=== PATIENT | male | born 1945 | race Caucasian/White ===

== ENCOUNTER → 2016-07-30 | Outpatient (CLI) | payer MEDICARE, BC ==
[~2016-07-30] MED LIST: ADVIL200 MG PO; ASPIRIN LO-DOSE81 MG PO; COLACE100 MG PO; DILAUDID 2MG(HYD2 MG PO; LIPITOR40 MG PO; MINOCYCLINE HC100 MG PO; MIRALAX17 GM PO; ROCEPHIN2 G1 IV; TOPROL XL200 MG PO; TRIAMCINOLONE 080 GM TOP; TRIAMTERENE-HC1 EACH PO; TYLENOL EXTRA500 MG PO; VALIUM5 MG PO; VANCO-0.9%1.25 GM/25 IV; XARELTO10 MG PO; ZYRTEC10 MG PO
[2016-07-30 13:35] LABS: ALBUMIN 3.1 gm/dL (3.5-5.0); ALK PHOS 94 IU/L (33-138); ALT 15 IU/L (12-78); ANION GAP 14.4 (10.0-19.0); AST 17 IU/L (10-40); BLOOD UREA NITROGEN 18 mg/dL (6-24); CALCIUM 8.7 mg/dL (8.5-10.5); CHLORIDE 102 mMol/L (96-110); CO2 27 mMol/L (22-32); CREATININE 0.8 mg/dL (0.6-1.3); POTASSIUM 4.4 mMol/L (3.7-5.1); SODIUM 139 mMol/L (135-145); TOTAL BILIRUBIN 0.4 mg/dL (0.0-1.5); TOTAL PROTEIN 6.8 g/dL (6.0-8.4)
[2016-07-30 13:45] LABS: ESTIMATED GFR (MDRD EQUATION) > 60
== END | disposition disaster alternative care site (69) ==
LOC: GRAD 07-27 → GLAB 07-27 → GRAD 12:45 → GLAB 13:00 → GRAD 13:00
PROVIDERS: Orthopaedic Surgery
DX: M79.89 Other specified soft tissue disorders (principal); M89.58 Osteolysis, other site; M85.652 Other cyst of bone, left thigh; Z96.642 Presence of left artificial hip joint
CPT/HCPCS: Q9967

== ENCOUNTER 2016-11-25 09:48 | Inpatient (IN) | payer MEDICARE, BC ==
[~2016-11-25] VITALS: Ht 188 cm; Wt 85.2 kg
--- NOTE | ~2016-11-25 | OR ---
PATIENT'S NAME: FELIPE MONTGOMERY [facility] AGE: 71 Y [address] ROOM: [address] [address] LOCATION: [facility] ADMIT DATE: 11/26/2016 OR/Procedure Report DISCHARGE DATE: FAMILY PHYSICIAN: Devin Jones MD ATTENDING PHYSICIAN: JOSEPHINE ART SURGEON: Josephine Art MD MEDICAL DOCTOR MD: DATE OF PROCEDURE: 11/26/2016 ADDENDUM: It should be noted that stability was assessed with a trial range of motion prior to wound closure. After the final reduction, the hip could not be anteriorly subluxated with firm external rotation with full extension and 0 degrees of abduction. In neutral rotation and 0 degrees of abduction, the hip could be hyperflexed to 120 degrees without instability. At 90 degrees of flexion and 0 degrees of abduction, the hip could be internally rotated to 60 degrees without posterior subluxation. This was deemed to be more than acceptable stability. MD SUREKHA KLEIN/modl /[id number] d: 11/26/16 2213 t: 12/10/16 0752, OPERATIVE SUMMARY
--- NOTE | ~2016-11-25 | DS ---
PATIENT'S NAME: FELIPE MONTGOMERY [facility] AGE: 71 Y [address] ROOM: [place] [address] LOCATION: [facility] ADMIT DATE: 11/26/2016 Discharge Summary DISCHARGE DATE: 11/30/2016 FAMILY PHYSICIAN: Devin Jones MD ATTENDING PHYSICIAN: Josephine Art PRIMARY DIAGNOSIS: Failed left total hip arthroplasty. SECONDARY DIAGNOSES: 1. Hypertension. 2. Macular degeneration. 3. Venous insufficiency. PROCEDURE PERFORMED: Left total hip revision. HISTORY: The patient is a 71-year-old male, who presents with failed left total hip arthroplasty and associated severely compromised activities of daily living. The patient has decided to proceed with left total hip revision after having been thoroughly counseled regarding the risks, benefits, limitations and alternatives. Please refer to the outpatient clinic notes and admission history and physical for this patient. HOSPITAL COURSE: The patient underwent a left total hip revision on 11/26/2016 without complications. Spinal anesthesia plus subcutaneous and periarticular local anesthesia was utilized. The patient received 24 hours of perioperative prophylactic antibiotics and remained hemodynamically stable, neurovascularly intact throughout the entire hospital course. The postoperative prophylactic deep venous thrombosis prophylaxis consisted of Xarelto, early mobilization and pneumatic compression devices. Daily physical therapy for gait training, transfer training, and reinforcement of hip dislocation precautions were received. The patient progressed well in physical therapy. On the date of discharge, 11/30/2016, the incision at the hip was healing well and showed no signs of infection. DISPOSITION: Home. DISCHARGE ACTIVITY: The patient is to bear weight as tolerated with strict hip dislocation precautions as instructed. There are to be no dressing changes. Dr. Art is to be notified immediately if there is any increased pain, fevers, chills, erythema or drainage. DISCHARGE MEDICATIONS: 1. Xarelto 10 mg 1 tab p.o. daily for 12 days for postoperative DVT prophylaxis. 2. Hydromorphone 2 mg 1 to 2 tabs p.o. every 4 hours p.r.n. for pain. PATIENT'S NAME: FELIPE MONTGOMERY [facility] AGE: 71 Y [address] ROOM: [place] [address] LOCATION: [facility] ADMIT DATE: 11/26/2016 Discharge Summary DISCHARGE DATE: 11/30/2016 FAMILY PHYSICIAN: Devin Jones MD ATTENDING PHYSICIAN: Josephine Art 3. Diazepam 1/2 to 1 tab p.o. every 6 hours p.r.n. for muscle spasms. 4. Ceftriaxone 2 g vial IV every day until seen by infectious disease followup. 5. Vancomycin 1 g vial IV every 12 hours until seen by infectious disease followup. 6. He is then instructed to continue all his other preadmission medications as instructed by his internal medicine doctor. FOLLOWUP: Followup appointment is to be with Dr. Art's office on 12/03/2016. ALEJANDRO NEGRETE PA-C FOR JOSEPHINE ART MD SMW/modl /[id number] d: 12/06/16 2311 t: 12/09/16 0923, DISCHARGE SUMMARY
--- NOTE | ~2016-11-25 | OR ---
[facility] 71 Y [address] ROOM: [place] [address] LOCATION: [facility] ADMIT DATE: 11/26/2016 OR/Procedure Report DISCHARGE DATE: FAMILY PHYSICIAN: Devin Jones MD ATTENDING PHYSICIAN: JOSEPHINE ART SURGEON: Josephine Art MD PATIENT ACCESS MANAGER: Ubaldo Mercado PA-C, and Wong Calzada TIRE BUFFER/TRAVELING PHLEBOTOMIST. DATE OF PROCEDURE: 11/26/2016 PREOPERATIVE DIAGNOSES: 1. 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 2. History of chronic left hip periprosthetic infection (the patient has been on oral suppressive antibiotics for over two decades). 3. Left thigh mass (? pseudotumor versus abscess). POSTOPERATIVE DIAGNOSES: 1. 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 2. History of chronic left hip periprosthetic infection (the patient has been on oral suppressive antibiotics for over two decades). 3. Left thigh mass (? pseudotumor versus abscess). PROCEDURES PERFORMED: 1. Revision left total hip arthroplasty (exchange of left femoral head and left acetabular polyethylene liner). 2. Extensive left hip synovectomy. 3. Decompression and debridement of left thigh fluid-filled mass (pseudocyst versus abscess). 4. Placement of antibiotic-impregnated calcium sulfate beads. ANESTHESIA: Spinal anesthesia plus subcutaneous and periarticular local anesthesia (ropivacaine with epinephrine and Toradol). DRAINS: None. SPECIMENS: 1. Synovial fluid for culture. 2. Synovial tissue for culture and histology. 3. Thigh mass fluid for culture and histology. 4. Thigh mass tissue for histology. EXPLANTS: 1. Intermedics APR II acetabular polyethylene liner (lipped) with 28-mm [facility]GE: 71 Y [address] ROOM: [place] [address] LOCATION: [facility] ADMIT DATE: 11/26/2016 OR/Procedure Report DISCHARGE DATE: FAMILY PHYSICIAN: Devin Jones MD ATTENDING PHYSICIAN: JOSEPHINE ART inner diameter. 2. A 28-mm metallic femoral head with +3 mm neck length. IMPLANTS: 1. Phyllis-Intermedics hooded enhanced acetabular polyethylene liner with 32 mm inner diameter. 2. DePuy 32 mm diameter metallic femoral head with +5 mm neck length (14/16 taper). 3. 20 mL of Stimulan beads, to which a total of 2 g of vancomycin and 2.4 mg of tobramycin had been added. ESTIMATED BLOOD LOSS: Less than 200 mL. COMPLICATIONS: None. INDICATIONS FOR SURGERY: Mr. Montgomery is a 71-year-old male, presenting with an enlarging posterolateral left thigh mass, with minimal associated discomfort. He is atypically stoic. His past orthopedic history is significant for having undergone a primary left total hip arthroplasty with Dr. Krunal Martinez in January of 1990 for a femoral neck fracture. He required revision a few years later due to loosening of the femoral component. He subsequently developed a periprosthetic fracture, which was treated with prosthetic retention. The patient and his report that he declined proceeding with the option of a two-stage revision at that time, and opted for a long-term oral suppression. He has been on oral antibiotics for over two decades. His current regimen is minocycline. He has had multiple revisions of this hip. On one occasion, he required revision because of a fractured ceramic femoral head. The patient's states the ceramic head was placed on a non-virgin trunnion. Risks, benefits, limitations, and alternatives to this procedure have been thoroughly reviewed with the patient. The patient has undergone an aspiration, which identified no offending organism. The patient and his family members have been informed that he has polyethylene wear at his acetabular component, and that it is conceivable that his thigh mass represents an enlarging lesion associated with trunnionosis. However, they have been informed that I strongly suspect that the enlarging thigh mass represents an abscess (consistent with no longer responding as favorably to the oral suppressive antibiotics that he has been on for over two decades). Preoperative plain radiographs demonstrated severe stress shielding of the proximal two-thirds of the femur. He has a long stem Solution extensively coated diaphyseal locking femoral component. The uncemented acetabular component is well fixed and well aligned. He was taken to the Operating Room presently to obtain deep cultures and to PATIENT'S NAME: FELIPE MONTGOMERY [facility] AGE: 71 Y [address] ROOM: [address] [address] LOCATION: [facility] ADMIT DATE: 11/26/2016 OR/Procedure Report DISCHARGE DATE: FAMILY PHYSICIAN: Devin Jones MD ATTENDING PHYSICIAN: JOSEPHINE ART debride the mass. Again, he has no significant pain. His C-reactive protein level is significantly elevated. I have informed the patient and his family members of the potential for false negative cultures. It is my opinion that extracting the femoral component would place him at high risk to have insufficient residual femur to permit reconstruction. Since he continues to function at a high level with no pain, he and his family members wish to attempt to continue to preserve the prosthesis. However, I have informed them that they were fighting a losing mederos in the long run, and that he is at risk for a fracture. They understand and accept this. I have sent the patient for a second opinion with Dr. Brian Albright in [place]. Dr. Albright agreed with my impression that the patient would not be amenable to reconstruction if he were to have his femoral component removed, and he recommended that the patient not have the component removed. Risks, benefits, limitations, and alternatives to the procedure were thoroughly reviewed with the patient and his family members. They understand that this procedure has no potential to be curative (if, indeed, he has a chronic periprosthetic infection as suspected). We discussed the potential for persistent and/or progressive infection, deep venous thrombosis, pulmonary embolism, mortality, recurrent wear and/or loosening, instability, leg length discrepancy, neurovascular complications, and blood transfusion risks. They understand that he may need to undergo a resection arthroplasty (even though the femur might not be reconstructible thereafter) if we fail to adequately control this process with this debridement. He has moderate polyethylene wear, and this is thought to potentially be contributing to the putative proliferative synovitis and potential pseudocyst. Therefore, femoral head and acetabular liner exchange was indicated. Furthermore, the patient has experienced at least one posterior dislocation subsequent to his most recent revision, and converting him to a larger diameter bearing has potential prophylactic benefit. Furthermore, extraction of the head and liner will permit a more extensive debridement of the joint space. Informed consent was granted. DESCRIPTION OF PROCEDURE: The patient was positioned in a right lateral decubitus position after administration of regional anesthesia and prophylactic antibiotics. His left hip and left lower extremity were prepped and draped with vigilant sterile technique. Examination of the left hip demonstrated significant subcutaneous adipose atrophy surrounding the proximal half of the curvilinear posterolateral scar. There was no mass in the gluteal region. There was a fluctuant football-sized mass at the posterolateral thigh. There was no surrounding erythema or induration or abnormal warmth. PATIENT'S NAME: FELIPE MONTGOMERY [facility] AGE: 71 Y [address] ROOM: [address] [address] LOCATION: [facility] ADMIT DATE: 11/26/2016 OR/Procedure Report DISCHARGE DATE: FAMILY PHYSICIAN: Devin Jones MD ATTENDING PHYSICIAN: JOSEPHINE ART The left hip was approached through the preexisting posterolateral scar. I excised the region of severe subcutaneous adipose atrophy. Sharp dissection proceeded through the iliotibial band and gluteus miguel angel fascia. Non- resorbable suture material was encountered in the fascia and removed. There was no abnormal fluid collection deep to the fascia at the hip. The sciatic nerve was identified and was vigilantly protected throughout the entire case. The posterior pseudocapsule was divided. There was an abundant amount of semi-purulent fluid within the joint space. This was intermixed with serosanguineous fluid. There was a granados and black staining of the synovial tissue. There was abundant proliferative synovitis. An extensive synovectomy was performed. There was dense, adherent exudate at the femoral neck and femoral head with a chalky consistency. This is highly unusual. This was quiroz- colored. The femoral head was extracted. There was severe macroscopic erosion of the proximal aspect of the trunnion. This was atypical for corrosion. I concluded that the rounded edges of the trunnion must have been a product of the weightbearing after the patient's previous ceramic femoral head fracture. There was a significant amount of contained and noncontained osteolysis around the proximal aspect of the femoral component. This was debrided. The femoral component was confirmed to be well fixed and well aligned. Circumferential acetabular exposure was obtained. There was approximately 2 mm of linear wear. The femoral polyethylene liner was extracted using a screw distraction technique. A trial liner was placed with the hylton replaced at the 3 o'clock position. (identical to the position that the extracted liner had been in). The posterolateral thigh fluctuant mass seemed to communicate with the joint space deep to the quadratus femoris muscle. With digital palpation, I punctured the proximal margin of this cyst. Approximately 2 L of nontranslucent, brown-colored fluid was evacuated. This created a very large potential space at the posterolateral thigh. The girth of the thigh immediately decreased by approximately 50%. There was no malodor. Synovial tissue, synovial fluid, cyst fluid, and cyst tissue were all sent for histology, culture, and cell count. After irrigating the cyst and debriding the cyst bluntly, the cyst was packed with stimulant beads. It should be noted that the entire joint space and the entire cyst cavity were irrigated with Bactisure (followed immediately by three additional liters of sterile saline containing bacitracin) prior to implanting the final acetabular liner and new femoral head and prior to placement of the stimulant beads. Some of the beads were placed at the inferior aspect of the hip joint space. Additional beads were placed within the proximal femoral shaft at the region where the osteolytic membrane had been femur. PATIENT'S NAME: FELIPE MONTGOMERY [facility] AGE: 71 Y [address] ROOM: [address] [address] LOCATION: [facility] ADMIT DATE: 11/26/2016 OR/Procedure Report DISCHARGE DATE: FAMILY PHYSICIAN: Devin Jones MD ATTENDING PHYSICIAN: JOSEPHINE ART The posterior pseudocapsule was reapproximated with multiple #2 PDS sutures. The fascia was reapproximated with multiple [id number] interrupted #2 PDS sutures. Subcutaneous tissues and fascia were infiltrated with local anesthetic. Subcutaneous tissues were thoroughly irrigated one final time prior to reapproximation with simple, deep, interrupted 0 Vicryl. The skin was closed with superficial buried interrupted 2-0 Vicryl, followed by a running subcuticular 3-0 Monocryl suture, followed by Dermabond, and followed by Steri- Strips with benzoin. It should be noted that the physician's assistant at surgery played an active, integral role throughout this entire operation. By providing expert retraction, they greatly facilitated and expedited safe and effective exposure of the proximal femur and acetabulum for preparation and implantation of the components. They were also actively involved in the patient's positioning, prepping and draping, as well as wound closure. It is my impression that this patient has chronic myelitis. Hopefully, we will obtain the responsible organism and its current sensitivities. We have sent routine cultures as well as fungal and AFB cultures. Infectious Disease consultation was requested. I have recommended a 6-week course of intravenous antibiotics prior to reinstituting chronic oral suppressive antibiotics. The patient and his family members understand that his limb is in jeopardy. He has been able to remain very physically active up until the present time, but I have encouraged him to seek more sedentary employment, and I have re- emphasized that we may need to remove his implants if he fails to respond favorably to today's treatment and/or if he sustains a periprosthetic fracture adjacent to the progressively attenuated residual femur. MD SUREKHA KLEIN/nataliia /[id number] d: 11/26/16 2208 t: 12/10/16 0750, OPERATIVE SUMMARY
[2016-11-25] MEDS ORDERED: TOPROL XL200 MG PO (10:11)
[2016-11-25] MEDS ORDERED: MINOCYCLINE HC100 MG PO (10:13)
[2016-11-25] MEDS ORDERED: ASPIRIN LO-DOSE81 MG PO (10:14)
[2016-11-25] MEDS ORDERED: LIPITOR40 MG PO (10:14)
[2016-11-25] MEDS ORDERED: TRIAMTERENE-HC1 EACH PO (10:15)
[2016-11-25] MEDS ORDERED: ZYRTEC10 MG PO (10:15)
[2016-11-25] MEDS ORDERED: ADVIL200 MG PO (10:57)
[2016-11-25] MEDS ORDERED: TYLENOL EXTRA500 MG PO (10:57)
[2016-11-26] MEDS ORDERED: TRIAMCINOLONE 080 GM TOP (06:33)
[2016-11-26 16:52] LABS: CREATININE 0.8 mg/dL (0.6-1.3)
[2016-11-27 03:21] LABS: ANION GAP 9.1 (10.0-19.0); BLOOD UREA NITROGEN 15 mg/dL (6-24); CALCIUM 8.3 mg/dL (8.5-10.5); CHLORIDE 103 mMol/L (96-110); CO2 26 mMol/L (22-32); CREATININE 0.7 mg/dL (0.6-1.3); POTASSIUM 4.1 mMol/L (3.7-5.1); SODIUM 134 mMol/L (135-145)
[2016-11-27 03:23] LABS: BASOPHIL % 0.6 %; EOSINOPHIL # 0.4 K/uL (0.0-0.5); HEMATOCRIT 26.1 % (37.0-53.0); HEMOGLOBIN 8.8 g/dL (11.0-16.0); IMMATURE GRANULOCYTE % 0.3 %; LYMPHOCYTE # 0.8 K/uL (0.8-4.0); LYMPHOCYTE % 11.2 %; MCH 31.1 pg (27.0-34.0); MCHC 33.7 gm/dL (32.0-36.5); MCV 92.2 fl (83.0-98.0); MONOCYTE # 0.8 K/uL (0.0-1.0); MONOCYTE % 11.6 %; MPV 9.1 fl (9.4-12.4); NEUTROPHIL # (ANC) 4.8 K/uL (1.4-9.0); NEUTROPHIL % 70.3 %; NRBC % 0 /100WBC (0-0.00); PLATELET COUNT 144 K/uL (150-450); RDW-CV 13.1 % (11.9-14.6); WBC 6.9 K/uL (4.0-11.0)
[2016-11-27 03:25] LABS: RBC 2.83 M/uL (3.50-5.50)
[2016-11-28 03:40] LABS: CREATININE 0.7 mg/dL (0.6-1.3)
[2016-11-30 02:39] LABS: CREATININE 0.7 mg/dL (0.6-1.3)
[2016-11-30] MEDS ORDERED: ROCEPHIN2 G1 IV (10:42)
[2016-11-30] MEDS ORDERED: VANCO-0.9%1.25 GM/25 IV (10:44)
[2016-11-30] MEDS ORDERED: COLACE100 MG PO (10:44)
[2016-11-30] MEDS ORDERED: XARELTO10 MG PO (10:45)
[2016-11-30] MEDS ORDERED: MIRALAX17 GM PO (10:45)
[2016-11-30] MEDS ORDERED: VALIUM5 MG PO (10:46)
[2016-11-30] MEDS ORDERED: DILAUDID 2MG(HYD2 MG PO (11:00)
== END 2016-11-30 14:35 | disposition home health service (06) | DRG 468 ==
LOC: GOPD 09:48 → G3N 11-26 06:01 → EDSTATUS 12-03
PROVIDERS: Obstetrics & Gynecology Obstetrics; ADMIT Orthopaedic Surgery
PROC: 0JBM0ZX Excision of Left Upper Leg Subcutaneous Tissue and Fascia, Open Approach, Diagnostic (ICD-10-PCS; principal; 2016-11-26)
PROC: 0SUE09Z Supplement Left Hip Joint, Acetabular Surface with Liner, Open Approach (ICD-10-PCS; principal; 2016-11-26)
PROC: 0SPE0JZ Removal of Synthetic Substitute from Left Hip Joint, Acetabular Surface, Open Approach (ICD-10-PCS; principal; 2016-11-26)
PROC: 0SPB09Z Removal of Liner from Left Hip Joint, Open Approach (ICD-10-PCS; principal; 2016-11-26)
PROC: 0SRE00A Replacement of Left Hip Joint, Acetabular Surface with Polyethylene Synthetic Substitute, Uncemented, Open Approach (ICD-10-PCS; principal; 2016-11-26)
DX: M19.90 Unspecified osteoarthritis, unspecified site (principal); Z96.642 Presence of left artificial hip joint; I10 Essential (primary) hypertension; D64.9 Anemia, unspecified; Z79.82 Long term (current) use of aspirin; F17.220 Nicotine dependence, chewing tobacco, uncomplicated; R22.9 Localized swelling, mass and lump, unspecified
CPT/HCPCS: C1751; C1776; J0690; J0696; J1885; J2001; J2795; J3370; J7030; J7040; J7050; J7120

== ENCOUNTER → 2016-12-03 | Outpatient (CLI) | payer MEDICARE, BC ==
[2016-12-03 14:46] LABS: CREATININE 0.8 mg/dL (0.6-1.3)
== END ==
LOC: LHHL 14:18
PROVIDERS: Obstetrics & Gynecology Obstetrics
DX: T84.52XA Infection and inflammatory reaction due to internal left hip prosthesis, initial encounter (principal); Z79.2 Long term (current) use of antibiotics

== ENCOUNTER → 2016-12-13 | Outpatient (CLI) | payer MEDICARE, BC ==
[2016-12-13 18:24] LABS: HEMATOCRIT 24.9 % (37.0-53.0); HEMOGLOBIN 8.3 g/dL (11.0-16.0); MCH 30.9 pg (27.0-34.0); MCHC 33.3 gm/dL (32.0-36.5); MCV 92.6 fl (83.0-98.0); MPV 8.9 fl (9.4-12.4); RBC 2.69 M/uL (3.50-5.50); RDW-CV 12.6 % (11.9-14.6); WBC 7.8 K/uL (4.0-11.0)
[2016-12-13 18:41] LABS: ALBUMIN 2.6 gm/dL (3.5-5.0); ANION GAP 10.9 (10.0-19.0); CALCIUM 8.2 mg/dL (8.5-10.5); CREATININE 1.1 mg/dL (0.6-1.3); POTASSIUM 3.9 mMol/L (3.7-5.1); TOTAL BILIRUBIN 0.2 mg/dL (0.0-1.5); TOTAL PROTEIN 6.4 g/dL (6.0-8.4)
== END ==
LOC: LHHL 18:18
PROVIDERS: Internal Medicine Infectious Disease
DX: T84.52XA Infection and inflammatory reaction due to internal left hip prosthesis, initial encounter (principal); Z51.81 Encounter for therapeutic drug level monitoring; Z79.2 Long term (current) use of antibiotics

== ENCOUNTER → 2016-12-20 | Outpatient (CLI) | payer MEDICARE, BC ==
[2016-12-20 19:09] LABS: HEMATOCRIT 27.6 % (37.0-53.0); HEMOGLOBIN 9.2 g/dL (11.0-16.0); MCH 31.2 pg (27.0-34.0); MCHC 33.3 gm/dL (32.0-36.5); MCV 93.6 fl (83.0-98.0); MPV 8.9 fl (9.4-12.4); RBC 2.95 M/uL (3.50-5.50); RDW-CV 13.1 % (11.9-14.6); WBC 7.4 K/uL (4.0-11.0)
[2016-12-20 19:26] LABS: ANION GAP 10.5 (10.0-19.0); CALCIUM 8.2 mg/dL (8.5-10.5); CREATININE 0.9 mg/dL (0.6-1.3); POTASSIUM 4.5 mMol/L (3.7-5.1); TOTAL PROTEIN 6.7 g/dL (6.0-8.4)
[2016-12-20 19:28] LABS: TOTAL BILIRUBIN 0.3 mg/dL (0.0-1.5)
== END ==
LOC: LHHL 19:04
PROVIDERS: Internal Medicine Infectious Disease
DX: T84.52XA Infection and inflammatory reaction due to internal left hip prosthesis, initial encounter (principal); Z51.81 Encounter for therapeutic drug level monitoring; Z79.2 Long term (current) use of antibiotics

== ENCOUNTER → 2016-12-27 | Outpatient (CLI) | payer MEDICARE, BC ==
[2016-12-27 19:25] LABS: HEMOGLOBIN 8.8 g/dL (11.0-16.0); MCHC 32.6 gm/dL (32.0-36.5); MCV 95.1 fl (83.0-98.0); MPV 9.2 fl (9.4-12.4); RBC 2.84 M/uL (3.50-5.50); RDW-CV 13.5 % (11.9-14.6); WBC 6.4 K/uL (4.0-11.0)
[2016-12-27 19:41] LABS: ALBUMIN 2.9 gm/dL (3.5-5.0); CALCIUM 8.2 mg/dL (8.5-10.5); CREATININE 1.2 mg/dL (0.6-1.3); TOTAL PROTEIN 6.4 g/dL (6.0-8.4)
[2016-12-27 19:45] LABS: TOTAL BILIRUBIN 0.2 mg/dL (0.0-1.5)
== END ==
LOC: LHHL 19:11
PROVIDERS: Internal Medicine Infectious Disease
DX: T84.52XA Infection and inflammatory reaction due to internal left hip prosthesis, initial encounter (principal); Z51.81 Encounter for therapeutic drug level monitoring; Z79.2 Long term (current) use of antibiotics

== ENCOUNTER → 2017-01-04 | Outpatient (CLI) | payer MEDICARE, BC ==
[2017-01-04 18:32] LABS: BASOPHIL % 0.6 %; EOSINOPHIL # 0.5 K/uL (0.0-0.5); EOSINOPHIL % 7.2 %; HEMATOCRIT 28.7 % (37.0-53.0); HEMOGLOBIN 9.1 g/dL (11.0-16.0); IMMATURE GRANULOCYTE % 0.5 %; LYMPHOCYTE # 0.8 K/uL (0.8-4.0); LYMPHOCYTE % 11.5 %; MCH 30.2 pg (27.0-34.0); MCHC 31.7 gm/dL (32.0-36.5); MCV 95.3 fl (83.0-98.0); MONOCYTE # 0.7 K/uL (0.0-1.0); MONOCYTE % 11.2 %; MPV 8.9 fl (9.4-12.4); NEUTROPHIL # (ANC) 4.5 K/uL (1.4-9.0); NRBC % 0 /100WBC (0-0.00); PLATELET COUNT 184 K/uL (150-450); RBC 3.01 M/uL (3.50-5.50); RDW-CV 13.9 % (11.9-14.6); WBC 6.5 K/uL (4.0-11.0)
[2017-01-04 18:52] LABS: ALK PHOS 126 IU/L (33-138); ALT 32 IU/L (12-78); AST 28 IU/L (10-40); BLOOD UREA NITROGEN 17 mg/dL (6-24); CALCIUM 8.1 mg/dL (8.5-10.5); CHLORIDE 103 mMol/L (96-110); CO2 28 mMol/L (22-32); CREATININE 0.8 mg/dL (0.6-1.3); SODIUM 137 mMol/L (135-145); TOTAL PROTEIN 6.1 g/dL (6.0-8.4)
[2017-01-04 18:54] LABS: TOTAL BILIRUBIN 0.4 mg/dL (0.0-1.5)
== END ==
LOC: LHHL 18:26
PROVIDERS: Internal Medicine Infectious Disease
DX: T84.52XA Infection and inflammatory reaction due to internal left hip prosthesis, initial encounter (principal); Z79.2 Long term (current) use of antibiotics